=== PATIENT | male | born 1995 | race Two or more races ===

== ENCOUNTER 2023-09-28 19:11 | Emergency (ER) | payer MEDICAID, OTHER ==
[~2023-09-28] VITALS: Ht 182.9 cm; Wt 99.8 kg
[2023-09-28] MEDS ORDERED: CYCLOBENZAPRINE 10 MG TABLET ONE (19:57)
[2023-09-28] MEDS ORDERED: LORAZEPAM INJ 2 MG/ML VIAL ONE (19:57)
[2023-09-28] MEDS ORDERED: MORPHINE SULFATE INJ 4 MG/ML DISP.SYRIN ONE (19:57)
[2023-09-28] MEDS ORDERED: LORAZEPAM INJ 2 MG/ML VIAL IV ONE (20:00)
[2023-09-28] MEDS ORDERED: MORPHINE SULFATE INJ 2 MG/ML DISP.SYRIN IV ONE (20:00)
[2023-09-28] MEDS ORDERED: CYCLOBENZAPRINE 10 MG TABLET PO ONE (20:00)
[2023-09-28] MEDS ORDERED: HYDR-3980 PO (20:36)
[2023-09-28] MEDS ORDERED: CYCL5TAB PO (20:36)
[2023-09-28 20:57] VITALS: BP 138/74; TEMP 98.4; O2SAT 99
== END 2023-09-28 23:11 | disposition home or self-care (01) ==
LOC: ER 19:41
DX: G89.29 Other chronic pain (principal); Z79.899 Other long term (current) drug therapy
CPT/HCPCS: 99284; 96374; 96375; J2060; J2270

== ENCOUNTER 2025-05-13 22:48 | Emergency (ER) | payer BC, MEDICAID ==
[~2025-05-13] VITALS: Ht 182.9 cm; Wt 100.2 kg
[2025-05-13] MEDS ORDERED: IBUP-1490 PO (23:13)
[2025-05-13] MEDS ORDERED: IBUPROFEN 400 MG TABLET ONE (23:31)
[2025-05-13] MEDS: IBUPROFEN 400 MG TABLET PO ONE (23:40)
[2025-05-14 01:45] VITALS: BP 141/85; TEMP 99; O2SAT 96
== END 2025-05-14 01:47 | disposition home or self-care (01) ==
LOC: ER 22:53 → EDBD 22:53 → ER 05-14 01:47
DX: T69.022A Immersion foot, left foot, initial encounter (principal); S90.822A Blister (nonthermal), left foot, initial encounter; Z59.00 Homelessness unspecified; X58.XXXA Exposure to other specified factors, initial encounter; Y93.01 Activity, walking, marching and hiking; Y92.89 Other specified places as the place of occurrence of the external cause; Y99.8 Other external cause status